=== PATIENT | female | born 1995 | race African-American/Black ===

== ENCOUNTER 2017-12-09 20:29 | Emergency (ER) | payer BC, OTHER, SELFPAY ==
--- NOTE | 2017-12-09 21:20 | RAD ---
PA AND LATERAL CHEST X-RAY 12/09/17 HISTORY: Cough and chest pain. COMPARISON: None available. FINDINGS: The cardiac silhouette and pulmonary vasculature are within normal limits. The lungs are clear. [place] us structures are intact. IMPRESSION: No acute cardiopulmonary process. POS: [facility]
== END 2017-12-09 22:36 | disposition home or self-care (01) ==
LOC: ERS 20:29
DX: J20.9 Acute bronchitis, unspecified (principal)
CPT/HCPCS: 71046

== ENCOUNTER 2018-05-23 08:13 | Emergency (ER) | payer BC, OTHER ==
[2018-05-23 09:07] LABS: #Monocytes 0.7 thou/uL (0.11-0.59); #Neutrophils 9.4 thou/uL (1.40-6.50); %Basophils 0.4 % (0.0-1.0); %Eosinophils 0.3 % (0.0-10.0); %Lymphocytes 8.8 % (21.0-51.0); %Monocytes 6.2 % (0.0-10.0); %Neutrophils 84.2 % (42.0-75.0); Hemoglobin 12.5 g/dL (12.0-16.0); Mean Corpuscular HGB CONC 32.6 g/dL (32.0-36.0); Mean Corpuscular Hemoglobin 25.8 pg (27.0-31.0); Mean Corpuscular Volume 79.4 fL (78.0-98.0); Mean Platelet Volume 10.1 fL (7.4-10.4); Platelet Count 228 thou/uL (130-400); RBC Distribution Width 15.2 % (11.5-14.5); Red Blood Cell (RBC) Count 4.84 mill/uL (4.20-5.40); White Blood Cell (WBC) Count 11.1 thou/uL (4.8-10.8)
--- NOTE | 2018-05-23 10:51 | ULT ---
PELVIC UTLRASOUND: HISTORY: patient. Bleeding. COMPARISON: None. TECHNIQUE: Transabdominal and endovaginal imaging of the pelvis is performed. Ovaries are interrogated with gra y scale, color flow, Doppler imaging, with spectral waveform analysis. FINDINGS: Uterus is identified. There are no myometrial masses. Uterus measures 5.4 x 6.6 x 9.7 cm. Endometr ium has an essentially homogeneous echotexture with a diameter of 0.5 cm. No evidence of a gestation al sac, yolk sac, or pole. The left ovary has a normal echotexture measuring 3.0 x 1.7 x 2.2 cm. There is anechoic focus in the right ovary which measures 0.5 cm. There is surrounding hypodensity m easuring 1.5 cm. There is mild vascular flow along the periphery. The right ovary measures 3.8 x 1.7 x 1.9 cm. There is a small amount of free fluid in the cul-de-sac. There is also free fluid in the right adnex a. IMPRESSION: No sonographic evidence of intrauterine gestation. Right adnexal hypoechoic mass with central anehoi c features. Differntial includes ovarian cyst vs ectopic . If this is infact a right ovari an cyst, then additional differential considerations include an early intrauterine versus s onographic occult ectopic versus missed spontaneous . Clinical correlation with followup ultrasound and serial beta HGCs are recommended. The results of the study were discussed with Dr. Pierce 05/23/18 at 10:32 a.m. CODE CR POS: [facility]
--- NOTE | 2018-05-23 13:47 | CON ---
DATE OF CONSULTATION: 05/23/2018 LOCATION: Emergency room #6. CONSULTING PHYSICIAN: Dr. Franko Pierce, Emergency Department. CHIEF COMPLAINT: Vaginal bleeding. HISTORY OF PRESENT ILLNESS: This is a 22-year-old -0-0-1 at approximately 9 weeks gestation by LMP who presented to the emergency department for heavy vaginal bleeding with passage of clots and tissue. She denies any significant pain and only mild cramping. She otherwise has no complaints. She reports she passed something that "looked weird" at home this morning and showed me a picture. Of note, the patient was diagnosed with approximately 3 weeks ago and was seen at the [facility] for an ultrasound a couple weeks ago. She was told that they did not see anything on ultrasound, but that she might be earlier than she previously thought. She was supposed to get an hCG level drawn, but never did. REVIEW OF SYSTEMS: Negative for head, eyes, ears, nose, throat, cardiovascular , respiratory, GI, , neuro, psych, musculoskeletal, skin or constitutional symptoms other than mentioned above. PAST MEDICAL HISTORY: None. PAST SURGICAL HISTORY: Right breast incision and drainage. MEDICATIONS: None. ALLERGIES: No known drug allergies. SOCIAL HISTORY: Negative for tobacco, alcohol, or drug abuse. FAMILY HISTORY: Noncontributory. PHYSICAL EXAMINATION: VITAL SIGNS: Afebrile with normal vital signs. GENERAL: Awake, alert, in no acute distress, appears comfortable. CHEST: Nonlabored breathing. ABDOMEN: Soft, nontender to palpation. No rebound or guarding. LABORATORY DATA: Blood type O negative. Hemoglobin 12.5, hematocrit 38.4. HCG 19,101. IMAGING: Transvaginal ultrasound was performed by Radiology which revealed a normal appearing uterus with an endometrial stripe measuring approximately 0.5 cm. No evidence of gestational sac, yolk sac or pole. Both ovaries appeared within normal limits. The left ovary had a 0.5 cm hypoechoic area that may represent a cyst. There is a small amount of free fluid. No masses were seen. ASSESSMENT AND PLAN: A 22-year-old -0-0-1 with a likely spontaneous miscarriage, but cannot rule out ectopic at this point. Given her hCG level of 19,000. I would expect to at least see a mass in the adnexa which was not seen on ultrasound today. She is in no pain and her vital signs are stable. She did bring the tissue in that she had passed at home this morning which did appear to be consistent with products of conception. This was sent to pathology for review, however the earliest they can get this back is tomorrow. I offered to do a D&C for a more rapid answer; however, the patient would like to wait at this point to possibly avoid surgery. She will return tomorrow for a repeat hCG level which should drop if consistent with a miscarriage. At that time, the pathology for products of conception should return. I reiterated the importance of followup and the patient voiced understanding. She will return to the emergency department for repeat hCG level tomorrow and the emergency physician will contact the hospitalist qualifications examiner. SHIKHA
== END 2018-05-23 12:19 | disposition home or self-care (01) ==
LOC: ERS 08:13
DX: O20.9 Hemorrhage in early pregnancy, unspecified (principal); Z3A.12 12 weeks gestation of pregnancy
CPT/HCPCS: 36415; 76856; 84702; 85025; 86900; 86901; 88305; 90384; 96372

== ENCOUNTER 2018-10-28 19:21 | Emergency (ER) | payer BC, OTHER ==
[2018-10-28] MEDS ORDERED: Ibuprofen 800 MG TAB ONE (19:58)
== END 2018-10-28 19:56 | disposition home or self-care (01) ==
LOC: ERS 19:21
DX: J02.9 Acute pharyngitis, unspecified (principal)
CPT/HCPCS: 87081; 87430; 99283

== ENCOUNTER 2019-01-04 22:11 | Emergency (ER) | payer BC, OTHER ==
[2019-01-04] MEDS ORDERED: Metoclopramide HCl 10 MG/2 ML VIAL ONE (22:37)
[2019-01-04] MEDS ORDERED: diphenhydrAMINE 50 MG/ML VIAL ONE (22:37)
[2019-01-04] MEDS ORDERED: Ketorolac Tromethamine 30 MG/ML VIAL ONE (22:37)
== END 2019-01-05 00:21 | disposition home or self-care (01) ==
LOC: ERS 22:11
DX: G43.909 Migraine, unspecified, not intractable, without status migrainosus (principal)
CPT/HCPCS: 96365; 96375; J1200; J1885; J2765

== ENCOUNTER 2019-11-13 19:30 | Inpatient (IN) | payer BC ==
[2019-11-13 21:20] VITALS: BMI 31.3
[2019-11-13] MEDS: Lactated Ringer's 1,000 ML IV SCH (21:56)
[2019-11-13] MEDS ORDERED: Lidocaine 1% (PF) 30 ML VIAL SC PRN (22:36)
[2019-11-13] MEDS ORDERED: Ondansetron PF 4 MG/2 ML Vial IVP PRN (22:36)
[2019-11-13] MEDS ORDERED: Docusate 100 MG CAP PO PRN (22:36)
[2019-11-13] MEDS ORDERED: Butorphanol Tartrate 1 MG/ML VIAL SLOW IVP PRN (22:36)
[2019-11-13] MEDS ORDERED: Promethazine HCl 25 MG/ML VIAL IM PRN (22:36)
[2019-11-13] MEDS ORDERED: hydrALAZINE 20 MG/ML VIAL SLOW IVP PRN (22:36)
[2019-11-13] MEDS ORDERED: Misoprostol 200 MCG TAB PR PRN (22:36)
[2019-11-13] MEDS ORDERED: NS / Oxytocin 40 units/1000ml 1,000 ML IV PRN (22:36)
[2019-11-13] MEDS ORDERED: Ibuprofen 800 MG TAB PO PRN (22:36)
[2019-11-13] MEDS ORDERED: NS w/ Oxytocin 10 units 500 ML IV SCH (22:45)
[2019-11-13 23:10] LABS: Hemoglobin 12.7 g/dL (12.0-16.0); Mean Corpuscular HGB CONC 34.3 g/dL (32.0-36.0); Mean Corpuscular Hemoglobin 29.2 pg (27.0-31.0); Mean Corpuscular Volume 85.1 fL (78.0-98.0); Mean Platelet Volume 10.5 fL (7.4-10.4); Platelet Count 195 thou/uL (130-400); RBC Distribution Width 12.7 % (11.5-14.5); Red Blood Cell (RBC) Count 4.34 mill/uL (4.20-5.40); White Blood Cell (WBC) Count 9.9 thou/uL (4.8-10.8)
--- NOTE | 2019-11-13 23:30 | PDOC.FPROB ---
FMR OB H&P: HPI - History of Present Illness Chief Complaint: IOL Indentification: 23 yo History of Present Illness: 23 yo @ 38.2 weeks by LMP c/w 8.3 sono here for med IOL for cHTN, not on medications. Pt reports pos movement, denies contractions, LOF, vag bleeding, vag discharge. 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 - Surgical History Sx History: NA - Social History Social History: No alcohol tobacco or drug use FMR OB H&P: Medications - Current Home Medications: Medication Instructions Recorded Confirmed Type Vit W-CA,Fe,FA(<1 mg) 1 tablet PO DAILY 07/28/15 11/13/19 History [ Formula] Allergies/Adverse Reactions: Allergies Allergy/AdvReac Type Severity Reaction Status Date / Time No Known Drug Allergies Allergy Verified 11/13/19 21:21 FMR OB H&P: ROS - Review of Systems General: denies: fever/chills Eyes: denies: vision changes Cardiovascular: denies: chest pain Respiratory: denies: shortness of breath Gastrointestinal: denies: abdominal pain, vomiting, diarrhea Genitourinary (Female): denies: vaginal bleeding, contractions Integumentary: denies: itching FMR OB H&P: Vital Signs - Heart Tones Baseline: 140 Variability: moderate Acceleration: present Deceleration: absent Category: category 1 [place] contractions every: 4-6 min FMR OB H&P: Physical Exam - Physical Exam General: NAD, awake, alert and oriented HEENT: normocephalic and atraumatic, PERRLA, EOMI, MMM, conjunctiva clear, no scleral icterus, grossly normal hearing Neck: trachea midline Heart: RRR, normal S1/S2, pulses present, no edema General: CTAB, no respiratory distress, good air movement, no rales/rhonchi Abdomen: soft, gravid, non-tender Neurological: no focal deficit - Pelvic Exam SVE: 4/50/-3/Soft/Mid pos Degroot score: 6 Membranes: Intact Presentation: Vertex by [place] FMR OB H&P: Results - Labs Lab results: Laboratory Results - last 24 hr 11/13/19 22:55 WBC 9.9 RBC 4.34 Hgb 12.7 Hct 36.9 MCV 85.1 MCH 29.2 MCHC 34.3 RDW 12.7 Plt Count 195 MPV 10.5 H FMR OB H&P: A/P - Problem List (1) Chronic hypertension affecting Current Visit: Yes Status: Acute Code(s): O10.919 - UNSP PRE-EXISTING HTN COMP , UNSP TRIMESTER Discussion: Date/Time: 11/13/19 1290 1) cHTN affecting : med ind IOL - Deg[place] 6 will start pitocin and cont cervical check q2-4 hrs - ? epidural, consult placed. Stadol PRN for pain - cat 1 strip currently, cont to monitor This H&P was discussed with Dr. Taylor who agree with the above documentation and plan. Addendum - Attending - Attending Attestation Date/Time: 11/14/19 1465 I personally discussed the care plan with Dr. Shannon at time of admission. I agree with the History, Examination, Assessment and Plan documented above with any addition or exceptions noted below.
[2019-11-13 23:44] LABS: HBSAg Index 0.14 S/CO (0-0.99); Hep B Surf Ag Non-Reactive S/CO (NonReactive); Syphilis Antibody Nonreactive (Nonreactive); Syphilis Antibody Index 0.07 S/CO (<1.00 Non-Reactive)
--- NOTE | 2019-11-14 01:38 | PDOC.LDPN ---
Labor & Delivery Progress Note - Subjective Subjective: comfortable - Objective Vital signs reviewed and normal: yes General: resting (feeling contractions more) Dilation: 4 Effacement: 50% Station: -3 FHT: category 1 [place] contractions every: 2-5 - Assessment (1) Chronic hypertension affecting Code(s): O10.919 - UNSP PRE-EXISTING HTN COMP , UNSP TRIMESTER Current Visit: Yes Status: Acute (2) 38 weeks gestation of Code(s): Z3A.38 - 38 WEEKS GESTATION OF Current Visit: No Status: Acute Plan: continue plan of care, pitocin for augmentation -: Induction of Labor for cHTN @ Term - SVE: /-3 - Deg[place] 6 - Pit @ 8 - BP WNL - Continue labor augmentation and expectant management
--- NOTE | 2019-11-14 03:14 | PDOC.BPN ---
- Brief Progress Note Cervical check /3. Confirmed vertex by bs us. Baseline FHTs 140 pos accels no late or variable, cat 1. [place] pattern variable with coupling. Pit @ 10. Cont pit, recheck cervix in 2 hrs. Stadol PRN pain. Anesthesia consulted in case pt decides on epidural.
[2019-11-14] MEDS: Lactated Ringer's 1,000 ML IV SCH ×2 (03:28→10:14)
--- NOTE | 2019-11-14 05:09 | PDOC.LDPN ---
Labor & Delivery Progress Note - Subjective Subjective: comfortable - Objective Vital signs reviewed and normal: yes General: NAD Dilation: 5 Effacement: 75% Station: -3 FHT: category 2, late decelerations [place] contractions every: triplets q4 minutes - Assessment (1) Chronic hypertension affecting Code(s): O10.919 - UNSP PRE-EXISTING HTN COMP , UNSP TRIMESTER Current Visit: Yes Status: Acute (2) 38 weeks gestation of Code(s): Z3A.38 - 38 WEEKS GESTATION OF Current Visit: No Status: Acute -: Induction of Labor for cHTN @ Term - SVE: unchanged, /-3 - [place] 8 - Pit was @ 12 and pt having sporadic late decels, will stop pitocin and watch strip for 1 hour - BP WNL, 98/48 Continue expectant mangement as above
--- NOTE | 2019-11-14 08:04 | PDOC.LDPN ---
Labor & Delivery Progress Note - Subjective Subjective: comfortable, painful contractions - Objective Vital signs reviewed and normal: yes General: NAD, resting - Assessment (1) Chronic hypertension affecting Code(s): O10.919 - UNSP PRE-EXISTING HTN COMP , UNSP TRIMESTER Current Visit: Yes Status: Acute (2) 38 weeks gestation of Code(s): Z3A.38 - 38 WEEKS GESTATION OF Current Visit: No Status: Acute -: - SVE: unchanged, /-3 - Pit was stopped around 4-5 AM, since that time there was 1 mild late decel but overall strip looks great - baseline 135, good variability, accels present - will titrate up on pitocin - BP WNL
--- NOTE | 2019-11-14 10:29 | PDOC.LDPN ---
Labor & Delivery Progress Note - Subjective Subjective: comfortable, painful contractions - Objective Vital signs reviewed and normal: yes General: NAD, resting - Assessment (1) Chronic hypertension affecting Code(s): O10.919 - UNSP PRE-EXISTING HTN COMP , UNSP TRIMESTER Current Visit: Yes Status: Acute (2) 38 weeks gestation of Code(s): Z3A.38 - 38 WEEKS GESTATION OF Current Visit: No Status: Acute -: - SVE: /3 @2230, pitocin 3 @ 0130 3 @ 0230 @ 0430, - Pit was stopped around 4-5 AM 2/2 decels 3 @ 0700 pit restarted @ 1030 pit at 14, ballotable - baseline 135, good variability, accels present, 1 thirty second late decel in last 20 minutes, good recovery - BP 107/49 Continue expectant management
--- NOTE | 2019-11-14 12:35 | PDOC.LDPN ---
Labor & Delivery Progress Note - Subjective Subjective: comfortable, painful contractions - Objective Vital signs reviewed and normal: yes General: NAD - Assessment (1) Chronic hypertension affecting Code(s): O10.919 - UNSP PRE-EXISTING HTN COMP , UNSP TRIMESTER Current Visit: Yes Status: Acute (2) 38 weeks gestation of Code(s): Z3A.38 - 38 WEEKS GESTATION OF Current Visit: No Status: Acute -: - SVE: /-3 @2230, pitocin 3 @ 0130 3 @ 0230 @ 0430, - Pit was stopped around 4-5 AM 22 decels /-3 @ 0700 pit restarted 3 @ 1030 pit at 14, ballotable /-3 @ 1230, pit stopped as below - baseline 135, good variability, accels present - had a patch of hyperstim with 2 variable decels, pit stopped, turned to side, 500ml bolus - BP 120/69 Will titrate up slowly on pit
--- NOTE | 2019-11-14 15:01 | PDOC.LDPN ---
Labor & Delivery Progress Note - Subjective Subjective: comfortable, painful contractions - Objective Vital signs reviewed and normal: yes General: NAD - Assessment (1) Chronic hypertension affecting Code(s): O10.919 - UNSP PRE-EXISTING HTN COMP , UNSP TRIMESTER Current Visit: Yes Status: Acute (2) 38 weeks gestation of Code(s): Z3A.38 - 38 WEEKS GESTATION OF Current Visit: No Status: Acute -: - SVE: /-3 @2230, pitocin /3 @ 0130 /3 @ 0230 3 @ 0430, - Pit was stopped around 4-5 AM 2/2 decels /-3 @ 0700 pit restarted /3 @ 1030 pit at 14, ballotable 6/80/-3 @ 1230, pit stopped as below 6/80/-3 @ 1500 - baseline 135, good variability, accels present - patient had run of late decels while standing, had her lay down and checked her, still no change - tried sitting upright as baby still ballotable, run of variables - will try lateral position - discussed with patient may need to proceed with section if infant continues to have difficultly tolerating contractions - BP WNL
--- NOTE | 2019-11-14 15:55 | PDOC.LDPN ---
Labor & Delivery Progress Note - Subjective Subjective: painful contractions - Objective Vital signs reviewed and normal: yes General: NAD, resting - Assessment (1) Chronic hypertension affecting Code(s): O10.919 - UNSP PRE-EXISTING HTN COMP , UNSP TRIMESTER Current Visit: Yes Status: Acute (2) 38 weeks gestation of Code(s): Z3A.38 - 38 WEEKS GESTATION OF Current Visit: No Status: Acute -: - SVE: /-3 @2230, pitocin /3 @ 0130 /-3 @ 0230 /-3 @ 0430, - Pit was stopped around 4-5 AM 2/2 decels /-3 @ 0700 pit restarted /-3 @ 1030 pit at 14, ballotable 6/80/-3 @ 1230, pit stopped as below 6/80/-3 @ 1500 6/90/-2 @ 1600, SROM, clear fluid - baseline 135, good variability, accels present, no decels - cat 1 - BP WNL
[2019-11-14 17:15] LABS: Creatinine, Urine 71.14 mg/dL (47-110)
[2019-11-14 17:29] LABS: Base Excess (BEa) -3.6 mEq/L (-2.0 to +3.0)
--- NOTE | 2019-11-14 17:47 | PDOC.OPDEL ---
OB Operative/Delivery Note - Additional Findings/Plan Compilations/Other Findings: Vaginal Delivery Procedure note Delivering Physician: Dr. Eudardo Kaminski Attending: Dr. Estefany Mackenzie Procedure: Spontaneous Vaginal Delivery Anesthesia: none QBL: 175 ml Pre-op Diagnosis: 1. Term intrauterine in labor 2. cHTN 3. Rh - Post-op Diagnosis: 1. Term intrauterine , delivered 2. same as above Indications: A 23y/o female presented for medical induction 2/2 cHTN Delivery Note: This 23yo F now @ 38.3wks who delivered a viable M infant at 1713. Following an uneventful antepartum course, a vigorous male was delivered over an intact perineum in the L occipitoanterior position. Anterior Shoulder and then remainder of the body delivered. Nuchal cord was reduced at the perineum. The head was held down and mouth and nares were bulb suctioned. Cord segment was collected. Placenta delivered intact in the [place] with a 3 vessel cord noted. Fundal massage was performed and the fundus was firm. The cervix and vagina were inspected and found to be free of lacerations. went to nursery in good condition for routine care. required about 30sec of blow by but then transitioned. Went to nursery for monitoring. Apgars were _5/8_ at 1 & 5 minutes, respectively. Patient tolerated delivery well and went to after routine recovery/care. Addendum - Attending - Attending Attestation Date/Time: 11/14/19 1754 I was present, assisted, supervised the of a viable male over an intact perineum to this 23 yo @38.3 weeks. Nuchal cord x 1 reduced on perineum. Apgars 5/8. Placenta delivered spontaneously and intact. 3V cord. No epis/lac. QBL= 175 mL. Resident: Jemma Kaminski
[2019-11-14] MEDS ORDERED: hydrALAZINE 20 MG/ML VIAL SLOW IVP PRN (18:12)
[2019-11-14] MEDS ORDERED: Milk Of Magnesia 30 ML UDCUP PO PRN (18:12)
[2019-11-14] MEDS ORDERED: Bisacodyl 10 MG SUPP PR PRN (18:12)
[2019-11-14] MEDS ORDERED: NS / Oxytocin 40 units/1000ml 1,000 ML IV SCH (18:12)
[2019-11-14] MEDS ORDERED: Ondansetron PF 4 MG/2 ML Vial IVP PRN (18:12)
[2019-11-14] MEDS ORDERED: Ibuprofen 800 MG TAB PO SCH ×2 (19:30→22:00)
[2019-11-14 19:36] LABS: Hemoglobin 13.1 g/dL (12.0-16.0); Mean Corpuscular HGB CONC 35.9 g/dL (32.0-36.0); Mean Corpuscular Hemoglobin 30.5 pg (27.0-31.0); Mean Platelet Volume 10.7 fL (7.4-10.4); Platelet Count 176 thou/uL (130-400); RBC Distribution Width 12.7 % (11.5-14.5); Red Blood Cell (RBC) Count 4.28 mill/uL (4.20-5.40); White Blood Cell (WBC) Count 17.6 thou/uL (4.8-10.8)
[2019-11-14 19:52] LABS: ALT (SGPT) 25 U/L (8-55); AST (SGOT) 26 U/L (5-34); Alkaline Phosphatase 111 U/L (40-110); Anion Gap 11 mmol/L (10-20); BUN (Urea Nitrogen) 5 mg/dL (7.0-18.7); Bilirubin, Total 0.7 mg/dL (0.2-1.2); Calc. Creatinine Clearance 166 mL/min (70-130); Calcium 8.7 mg/dL (7.8-10.44); Carbon Dioxide 21 mmol/L (22-29); Chloride 108 mmol/L (98-107); Estimated GFR-MDRD Greater than 90; Globulin 3.1 g/dL (2.4-3.5); Glucose 125 mg/dL (70-105); Potassium 3.7 mmol/L (3.5-5.1); Protein, Total 6.1 g/dL (6.0-8.3); Sodium 136 mmol/L (136-145)
[2019-11-14] MEDS: Docusate Calcium (SURFAK) 240 MG CAP PO SCH (21:54)
[2019-11-15] MEDS ORDERED: Sodium Chloride 0.9% 10 ML ONE (00:24)
[2019-11-15] MEDS: Ibuprofen 800 MG TAB PO SCH ×3 (04:06→20:28)
[2019-11-15] MEDS ORDERED: Simethicone Chewable 80 MG TAB PO SCH (05:50)
--- NOTE | 2019-11-15 06:55 | PDOC.OBPPN ---
FMR OB PN: Subj - Interval History Hospital Day: 2 Day: 1 Pt is doing well this morning, working on . States pain is well- controlled. Ambulating. Tolerating PO liquids, has not tried solids yet. Voiding without difficulty, no BM yet. Lochia slightly more than period, mild abdominal cramps. No fever/chills/SOB/RAPHAEL/vision changes/n/v. No concerns. No acute events overnight. Undecided if wants to stay another night or go home today. FMR OB PN: Obj - Maternal Vital signs: BP: 117/58->129/78 HR: 68 RR: 18 Tmax: 98 Pox: 98% on RA Wt: 90kg - Urine output I&O: 11/13/19 11/14/19 11/15/19 06:59 06:59 06:59 Intake Total 1 Output Total 253 Balance -252 - Lochia Lochia: Slightly more than normal period. - Pain Management Intervention: oral medication (well-controlled) FMR OB PN: Exam - Physical Exam General: NAD, awake, alert and oriented (lying comfortably in bed) HEENT: MMM Neck: supple, trachea midline Heart: RRR, normal S1/S2, no murmurs/rubs/gallops, pulses present, no edema General: CTAB, no respiratory distress, good air movement, no rales/rhonchi, no wheezing Abdomen: soft, non-tender, bowel sound present, other (fundus firm located below umbilicus) Neurological: no focal deficit Skin: no rash Psychiatric: intact recent and remote memory, good judgement and insight, normal mood and affect FMR OB PN: Data - Labs Lab results: Laboratory Results - last 24 hr 11/14/19 11/14/19 11/14/19 16:25 16:30 19:24 WBC RBC Hgb Hct MCV MCH MCHC RDW Plt Count MPV Bicarbonate Actual 23.0 ABG Base Excess -3.6 L Cord ABG pH 7.305 Cord ABG PCO2 (Jono) 47.3 Sodium 136 Potassium 3.7 Chloride 108 H Carbon Dioxide 21 L Anion Gap 11 BUN 5 L Creatinine 0.75 Estimated GFR (MDRD) Greater than 90 Glucose 125 H Calcium 8.7 Total Bilirubin 0.7 AST 26 ALT 25 Alkaline Phosphatase 111 H Serum Total Protein 6.1 Albumin 3.0 L Globulin 3.1 Albumin/Globulin Ratio 1.0 L U Random Total Protein 42 H Urine Creatinine 71.14 Screen 11/14/19 11/14/19 19:24 19:24 WBC 17.6 H RBC 4.28 Hgb 13.1 Hct 36.4 MCV 85.0 MCH 30.5 MCHC 35.9 RDW 12.7 Plt Count 176 MPV 10.7 H Bicarbonate Actual ABG Base Excess Cord ABG pH Cord ABG PCO2 (Jono) Sodium Potassium Chloride Carbon Dioxide Anion Gap BUN Creatinine Estimated GFR (MDRD) Glucose Calcium Total Bilirubin AST ALT Alkaline Phosphatase Serum Total Protein Albumin Globulin Albumin/Globulin Ratio U Random Total Protein Urine Creatinine Screen NEGATIVE FMR OB PN: A/P - Problem List (1) Spontaneous vaginal delivery Current Visit: Yes Status: Acute Code(s): O80 - ENCOUNTER FOR FULL-TERM UNCOMPLICATED DELIVERY (2) Chronic hypertension affecting Current Visit: Yes Status: Acute Code(s): O10.919 - UNSP PRE-EXISTING HTN COMP , UNSP TRIMESTER Disposition: 23yo ->2 s/p @ 1713 on 11/14/19 @ 38.3wk by LMP/8.3wk sono complicated by cHTN and Rh- now PPD#1 #PPD#1 - s/p @ 1713 on 11/14/19, ALFONSO male - routine care - Encourage ambulation and PO intake - Cont motrin for pain control - Monitor lochia and vitals, currently all maternal VSS - Hb 12.7 -> 13.1 #cHTN - BP WNL since delivery, did have multiple mid-range pressures during labor prompting preE workup - PreE labs demonstrated Pr/Cr ratio of 0.59, Plt and LFTs WNL. - No s/s of severe features on exam/history and no more elevated BP since delivery - Will cont to monitor closely, consider Mag if severe range pressures #Rh- - Mom O-, baby O= - s/p Rhogam IVF: SL Diet: Regular PCP: Joan Dispo: Monitor BP, routine care. Anticipate discharge today vs tomorrow pending clinical course of mom/baby. Discussion: Date/Time: 11/15/19 0652 This H&P was discussed with Dr. Kaminski and Dr. Mackenzie who agree with the above documentation and plan. Addendum - Attending - Attending Attestation Date/Time: 11/15/19 1110 I personally evaluated the patient and discussed the management with Dr. Jose Jordan I agree with the History, Examination, Assessment and Plan documented above with any addition or exceptions noted below - Patient without complaints. Ambulating/voiding; tolerating po. Afebrile VSS. A/P: 1) PPD#1 s/p - Continue routine . Anticipate d/c in AM
[2019-11-15] MEDS ORDERED: Adacel (T-DAP) 0.5 ML SYRINGE IM ONE (09:00)
[2019-11-15] MEDS: Ferrous Sulfate 325 MG TAB PO SCH ×2 (09:22→17:50)
[2019-11-15] MEDS: Docusate Calcium (SURFAK) 240 MG CAP PO SCH ×2 (09:31→20:28)
[2019-11-15] MEDS ORDERED: Acetaminophen 500 MG TAB PO PRN (17:15)
[2019-11-15] MEDS ORDERED: HYDROcodone/Acetaminophen 5/325 mg Tablet PO SCH (17:30)
[2019-11-16] MEDS: Ibuprofen 800 MG TAB PO SCH (04:35)
--- NOTE | 2019-11-16 06:04 | PDOC.OBPPN ---
FMR OB PN: Subj - Interval History Hospital Day: 3 Day: 2 Doing well this morning. No acute events overnight. going well. Eager for discharge this AM. Tolerating PO well without n/v, no fever/chills/RAPHAEL/ SOB. Ambulating. Voiding without difficulty. No BM, but positive flatus. Lochia similar to heavy period, decreased from yesterday. Pain well-controlled. FMR OB PN: Obj - Maternal Vital signs: BP: 110s/60s HR: 90 RR: 18 Tmax: 98.6 Pox: 100% on RA Wt: 90kg - Urine output I&O: 11/14/19 11/15/19 11/16/19 06:59 06:59 06:59 Intake Total 1 Output Total 253 Balance -252 - Lochia Lochia: similar to heavy period, decreased from previous day - Pain Management Intervention: oral medication (well-controlled) FMR OB PN: Exam - Physical Exam General: NAD, awake, alert and oriented (resting comfortably.) HEENT: MMM Neck: supple, trachea midline Heart: RRR, normal S1/S2, no murmurs/rubs/gallops, no edema General: CTAB, no respiratory distress, good air movement, no rales/rhonchi, no wheezing Abdomen: soft, fundus(cm) (located below umbilicus, firm, nontender), non-tender , bowel sound present, no masses Neurological: no focal deficit Skin: no rash Lymphatic: no unusual bruising or bleeding Psychiatric: intact recent and remote memory, good judgement and insight, normal mood and affect FMR OB PN: A/P - Problem List (1) Spontaneous vaginal delivery Current Visit: Yes Status: Acute Code(s): O80 - ENCOUNTER FOR FULL-TERM UNCOMPLICATED DELIVERY (2) Chronic hypertension affecting Current Visit: Yes Status: Acute Code(s): O10.919 - UNSP PRE-EXISTING HTN COMP , UNSP TRIMESTER Disposition: 23yo ->2 s/p @ 1713 on 11/14/19 @ 38.3wk by LMP/8.3wk sono complicated by cHTN and Rh- now PPD#2 #PPD#2 - s/p @ 1713 on 11/14/19, [place] male - routine care - Cont to Encourage ambulation and . - Cont motrin for pain control, well-controlled - Lochia decreased, maternal VSS - Hb 12.7 -> 13.1 - Anticipate discharge today #cHTN - BP 110s-60s past 24 hours, did have multiple mid-range pressures during labor prompting preE workup - PreE labs demonstrated Pr/Cr ratio of 0.59, Plt and LFTs WNL. Labs and urine obtained during active labor. - No s/s of severe features on exam/history and no more elevated BP since delivery - Will cont to monitor closely, consider Mag if severe range pressures #Rh- - Mom O-, baby O= - s/p Rhogam IVF: SL Diet: Regular PCP: Joan Dispo: Monitor BP, routine care. Anticipate discharge today. Will need visit in 2wks. Discussion: Date/Time: 11/16/19 0602 This H&P was discussed with Dr. Kaminski and Dr. Mackenzie who agree with the above documentation and plan. Addendum - Attending - Attending Attestation Date/Time: 11/16/19 1233 I personally evaluated the patient and discussed the management with Dr. Jose Jordan I agree with the History, Examination, Assessment and Plan documented above with any addition or exceptions noted below - Patient without complaints. Feeling well. Afebrile VSS. A/P: 1) PPD#2 s/p - plan to d/c home today. .
[2019-11-16] MEDS: Ferrous Sulfate 325 MG TAB PO SCH (07:33)
[2019-11-16 08:21] VITALS: BP 112/54; TEMP 98.2
[2019-11-16] MEDS: Docusate Calcium (SURFAK) 240 MG CAP PO SCH (08:55)
== END 2019-11-16 13:50 | disposition home or self-care (01) | DRG 807 ==
LOC: L&D 20:06 → 3SW 11-14 21:15
PROVIDERS: ADMIT Family Medicine; ATTEND Family Medicine
PROC: 10E0XZZ Delivery of Products of Conception, External Approach (ICD-10-PCS; principal; 2019-11-14)
PROC: 3E033VJ Introduction of Other Hormone into Peripheral Vein, Percutaneous Approach (ICD-10-PCS; 2019-11-14)
DX: O10.92 Unspecified pre-existing hypertension complicating childbirth (principal); Z37.0 Single live birth; Z3A.38 38 weeks gestation of pregnancy; O26.893 Other specified pregnancy related conditions, third trimester; Z67.91 Unspecified blood type, Rh negative; O76 Abnormality in fetal heart rate and rhythm complicating labor and delivery; O69.81X0 Labor and delivery complicated by cord around neck, without compression, not applicable or unspecified
CPT/HCPCS: 36415; 80053; 82570; 82805; 84156; 85027; 85461; 86780; 86850; 86870; 86900; 86901; 87340; 88307; 90384; 96372; J0595; J2590

== ENCOUNTER 2022-12-06 10:07 | Emergency (ER) | payer BC ==
[2022-12-06 10:43] LABS: #Lymphocytes 1.3 thou/uL (1.20-3.40); #Monocytes 0.7 thou/uL (0.11-0.59); #Neutrophils 8.2 thou/uL (1.40-6.50); %Basophils 0.1 % (0.0-1.0); %Eosinophils 0.4 % (0.0-10.0); %Lymphocytes 12.9 % (21.0-51.0); %Monocytes 7.1 % (0.0-10.0); %Neutrophils 79.6 % (42.0-75.0); Hemoglobin 12.6 g/dL (12.0-16.0); Mean Corpuscular HGB CONC 33.7 g/dL (32.0-36.0); Mean Corpuscular Hemoglobin 28.4 pg (27.0-31.0); Mean Corpuscular Volume 84.3 fl (78.0-98.0); Mean Platelet Volume 9.5 fL (7.4-10.4); Platelet Count 270 10x3/uL (130-400); RBC Distribution Width 11.7 % (11.5-14.5); Red Blood Cell (RBC) Count 4.43 mill/uL (4.20-5.40); White Blood Cell (WBC) Count 10.2 10x3/uL (4.8-10.8)
[2022-12-06 11:01] LABS: BHCG - Serum Negative (NEGATIVE); Pregs Control Background? CLEAR/WHITE (CLR/WHITE); Pregs Control Bar Appear? YES (CONTROL BAR)
[2022-12-06 11:03] LABS: ALT (SGPT) 11 U/L (8-55); AST (SGOT) 16 U/L (5-34); Albumin 4.2 g/dL (3.5-5.0); Alkaline Phosphatase 72 U/L (40-110); Anion Gap 13 mmol/L (10-20); BUN (Urea Nitrogen) 14 mg/dL (7.0-18.7); Bilirubin, Total 0.6 mg/dL (0.2-1.2); Calc. Creatinine Clearance 0 mL/min (70-130); Calcium 9.4 mg/dL (7.8-10.44); Carbon Dioxide 22 mmol/L (22-29); Chloride 107 mmol/L (98-107); Estimated GFR 95; Globulin 3.6 g/dL (2.4-3.5); Glucose 93 mg/dL (70-105); Lipase 35 U/L (8-78); Potassium 4.1 mmol/L (3.5-5.1); Protein, Total 7.8 g/dL (6.0-8.3); Sodium 138 mmol/L (136-145)
[2022-12-06] MEDS ORDERED: Iopamidol-370 76% 500 ML 1 ML ONE (11:22)
[2022-12-06 12:21] LABS: Bacteria/HPF None Seen HPF (None Seen); Bilirubin Negative (Negative); Blood, Urine 2+ (Negative); Clarity Clear (Clear); Glucose, Urine (Dipstick) Normal (Negative); Ketone, Urine Negative (Negative); Leukocyte Negative Leu/uL (Negative); Nitrite Negative (Negative); Protein, Urine (Dipstick) Negative (Neg-Trace); RBC/HPF 21-50 HPF (0-3); Specific Gravity, Urine 1.016 (1.002-1.036); Squamous Epithelial 0-3 HPF (0-3); Urobilinogen Normal mg/dL (Less than 2); WBC/HPF None Seen HPF (0-3)
== END 2022-12-06 15:23 | disposition home or self-care (01) ==
LOC: ERS 10:07
DX: R10.13 Epigastric pain (principal)
CPT/HCPCS: 36415; 71045; 71275; 76705; 80053; 81003; 81015; 83690; 84484; 84703; 85025; 85379; 93005; Q9967